=== PATIENT | male | born 1970 | race Two or more races ===

== ENCOUNTER 2017-11-22 12:24 | Emergency (ER) | payer OTHER ==
[~2017-11-22] VITALS: Ht 167.6 cm; Wt 81.6 kg
[~2017-11-22 12:24] MED LIST: CIPRO500 MG PO; PERCOCET 5-3251 EACH PO
== END 2017-11-22 19:16 | disposition home or self-care (01) ==
LOC: ER 12:24
DX: N20.1 Calculus of ureter (principal)